=== PATIENT | female | born 1930 | race Asian ===

== ENCOUNTER → 2019-12-24 | Outpatient (CLI) | payer MEDICARE, BC ==
[~2019-12-24] MED LIST: ALBUAER3 IN; AMOX500T92 PO; ASPI81CH43 PO; AZIT250T9 PO; METO25TA93 PO
== END | disposition home or self-care (01) ==
LOC: LAB 12:53
PROVIDERS: ATTEND Internal Medicine
DX: R79.89 Other specified abnormal findings of blood chemistry (principal); I48.92 Unspecified atrial flutter; Z86.2 Personal history of diseases of the blood and blood-forming organs and certain disorders involving the immune mechanism
CPT/HCPCS: 36415; 84443

== ENCOUNTER 2020-04-29 11:07 | Inpatient (IN) | payer MEDICARE, BC ==
[~2020-04-29] VITALS: Ht 162.6 cm; Wt 44.8 kg
[2020-04-29] MEDS ORDERED: cefTRIAXone 1GM/50ML D5W 50 ML IV ONE (13:00)
[2020-04-29] MEDS ORDERED: AZITHROMYCIN 500MG/ 250ML 250 ML IV ONE (13:00)
[2020-04-29] MEDS ORDERED: DOXYCYCLINE 100MG/250ML 250 ML IV ONE (13:00)
[2020-04-29 13:08] LABS: INR 0.96 (0.9-1.15); Partial Thromboplastin Time 27.1 sec (23.64-32.05)
[2020-04-29 13:11] LABS: Albumin 3.5 g/dL (3.4-5.0); Anion Gap 5 (5-15); Blood Urea Nitrogen 17 mg/dL (7-18); Calcium 8.8 mg/dL (8.5-10.1); Carbon Dioxide 27 mmol/L (21-32); Chloride 104 mmol/L (98-107); Glucose 106 mg/dL (74-106); Magnesium 2.6 mg/dL (1.6-2.6); Sodium 136 mmol/L (136-145)
[2020-04-29 13:15] LABS: Alanine Aminotransferase 20 U/L (13-56); Alkaline Phosphatase 82 U/L (45-117); Aspartate Aminotransferase 27 U/L (15-37); Bilirubin, Total 0.9 mg/dL (0.2-1.0); GFR African American 114 mL/min; GFR Non-African American 95 mL/min; Total Protein 7.6 g/dL (6.4-8.2)
[2020-04-29 13:48] LABS: Basophils # (auto) 0 10 ^3/uL (0-0.2); Basophils % (auto) 0.6 % (0.0-2.0); Eosinophils # (auto) 0 10 ^3/uL (0-0.8); Eosinophils % (auto) 0.4 % (0.0-7.0); Hemoglobin 14.2 g/dL (12.2-16.2); Lymphocytes # (auto) 0.7 10 ^3/uL (0.4-5.4); Lymphocytes % (auto) 9.7 % (10.0-50.0); Mean Corpuscular Hemoglobin 32.7 pg (28.0-32.0); Mean Corpuscular Hgb Conc. 33.1 g/dL (32.0-36.0); Monocytes # (auto) 0.5 10 ^3/uL (0-1.3); Neutrophils # (auto) 5.6 10 ^3/uL (1.6-8.6); Neutrophils % (auto) 82.3 % (37.0-80.0); Nucleated Red Blood Cells % 0.1 %; Platelet Count (auto) 278 10^3/uL (140-450); Red Blood Cells 4.34 10^6/uL (4.0-5.20); Red Cell Distribution Width 13.2 % (11.8-14.3); White Blood Cell 6.8 10^3/uL (4.4-10.8)
[2020-04-29] MEDS ORDERED: LACTULOSE 20Gm/30ML SOLN PO PRN (15:15)
[2020-04-29] MEDS ORDERED: NITROGLYCERIN 0.4 MG SL TAB SL PRN (15:15)
[2020-04-29] MEDS ORDERED: ACETAMINOPHEN 500 MG TAB PO PRN (15:15)
[2020-04-29] MEDS ORDERED: ALBUTEROL SULF 2.5 MG/0.5ML(0.5%) NEB SOLN NEB PRN ×2 (15:15→18:00)
[2020-04-29] MEDS ORDERED: traMADol HCL 50 MG TAB PO PRN (15:15)
[2020-04-29] MEDS ORDERED: MORPHINE SULF INJ 2 MG/ML SYRINGE 1ML IV PRN (15:15)
[2020-04-29] MEDS ORDERED: ONDANSETRON HCL 4 MG/2 ML VIAL IV PRN (15:15)
[2020-04-29 17:57] VITALS: BP 118/68
[2020-04-29] MEDS ORDERED: IPRATROPIUM BROM 0.5 MG/2.5ML INH SOL NEB PRN (18:00)
--- NOTE | 2020-04-29 18:24 | NUR ---
RT NOTE PT WAS SEEN BY RT FOR PRN HHN TX ASSESSMENT. PT IS AWAKE AND ALERT WITHOUT SOB OR DISTRESS NOTED IN ER ROOM 19. HR 81, RR 18, BS CLEAR ON RIGHT, CRACKLES ON LEFT, POX 97% ON 3L NASAL CANNULA. PT STATES SHE FEELS GOOD AND DOES NOT NEED A TX AT THIS TIME. PT EDUCATED ON CALLING IF TX NEEDED AT ANY POINT. CONT ORDERED Addendum: 04/29/20 at 1843 by Tete Tang RT Amended: Links added.
[2020-04-29 22:00] VITALS: BP 137/77
[2020-04-29] MEDS ORDERED: ALBUTEROL SULF 2.5 MG/0.5ML(0.5%) NEB SOLN NEB SCH (22:00)
[2020-04-29] MEDS ORDERED: IPRATROPIUM BROM 0.5 MG/2.5ML INH SOL NEB SCH (22:00)
[2020-04-29] MEDS ORDERED: ALBUTEROL SULF HFA 90MCG INH 200DOSE IN SCH (22:00)
[2020-04-29] MEDS: SODIUM CHLOR 0.9% PF (SALINE LOCK) 10ML VIAL/SYR IV SCH (22:46)
[2020-04-30 05:00] VITALS: BP 95/51
--- NOTE | 2020-04-30 07:17 | NUR ---
PT ASSESSED FOR PRN HHN TX. PT IS ON 3LNC, SPO2 91%< HR 100, RR 18. NO S/S OF RESPIRATORY DISTRESS. PRN TX NOT INDICATED AT THIS TIME. WILL CONTINUE TO MONITOR.
--- NOTE | 2020-04-30 07:30 | NUR ---
Opening Note Assumed patient care from NOC RN. Patient currently sitting up in bed, no signs of distress at this time. Patient is AOx4, on 3L nasal cannula. No complaints of SOB at this time. Respirations even and unlabored, safety precautions in place. Will continue to monitor.
[2020-04-30 08:39] VITALS: BP 117/68
[2020-04-30] MEDS ORDERED: MULTTAB61 PO (10:14)
[2020-04-30] MEDS ORDERED: ALBUAER3 IN (10:15)
[2020-04-30] MEDS: levoFLOXacin 500MG 100 ML IV SCH (10:15)
[2020-04-30] MEDS: ENOXAPARIN SOD 30 MG/0.3 ML SYRINGE SC SCH (10:17)
[2020-04-30] MEDS ORDERED: ASCO500T11 PO (10:18)
[2020-04-30] MEDS: SODIUM CHLOR 0.9% PF (SALINE LOCK) 10ML VIAL/SYR IV SCH ×3 (10:18→20:46)
[2020-04-30] MEDS ORDERED: ZINC220C8 PO (10:18)
[2020-04-30] MEDS ORDERED: POTA10TA51 PO (10:18)
--- NOTE | 2020-04-30 12:05 | NUR ---
at Bedside Dr. Veloz at bedside
[2020-04-30 13:00] VITALS: BP 115/57
[2020-04-30 17:00] VITALS: BP 108/61
[2020-04-30] MEDS ORDERED: FUROSEMIDE 40 MG/4 ML VIAL IV ONE (17:45)
--- NOTE | 2020-04-30 18:00 | NUR ---
Paged RT Paged RT, patient requesting breathing treatment.
--- NOTE | 2020-04-30 18:40 | NUR ---
RT at Bedside Respiratory therapist at bedside for breathing treatment.
--- NOTE | 2020-04-30 19:30 | NUR ---
Opening Shift Note Assumed care of patient, awake and alert. No S/S of distress/SOB or pain. Patient ambulating to and from the restroom independently. Instructed on POC and to call for assist PRN, will continue to monitor for changes Q1hr and PRN.
--- NOTE | 2020-04-30 20:10 | NUR ---
Patient HR had been showing from 105 to 117 on tele monitor since arrival of shift. Patient stated that she had not taken her Metoprolol for 2 days now. Patient is asymptomatic. VS WNL except for HR. Jose Cruz Hospitalist. Received one time order for Metoprolol Succinate 25 mg PO. Will administer accordingly.
[2020-04-30] MEDS ORDERED: METOPROLOL SUCCINATE XL 50 MG TAB PO ONE (20:15)
[2020-04-30 22:00] VITALS: BP 123/65
[2020-05-01 04:30] VITALS: BP 122/68
[2020-05-01] MEDS: SODIUM CHLOR 0.9% PF (SALINE LOCK) 10ML VIAL/SYR IV SCH ×3 (06:00→22:23)
--- NOTE | 2020-05-01 07:30 | NUR ---
Opening Note Assumed patient care from NOC RN. Patient currently up in bed, no signs of distress at this time, inquiring about discharge. Respirations are even and unlabored, safety precautions in place, will continue to monitor.
[2020-05-01 08:59] VITALS: BP 123/73
[2020-05-01] MEDS ORDERED: FUROSEMIDE 40 MG/4 ML VIAL IV ONE ×2 (09:45→13:00)
[2020-05-01] MEDS: levoFLOXacin 500MG 100 ML IV SCH (10:03)
[2020-05-01] MEDS: ENOXAPARIN SOD 30 MG/0.3 ML SYRINGE SC SCH (10:03)
--- NOTE | 2020-05-01 11:27 | NUR ---
New IV Left forearm IV discontinued due to signs of infiltration. New IV 20 gauge right AC, started on first attempt; blood return noted, IV flushes easily, patient tolerated well with no signs of distress at this time. Safety precautions in place. Will continue to monitor.
--- NOTE | 2020-05-01 11:45 | NUR ---
Spoke with MD Per MD, restart home medication Metoprolol 25mg PO Daily.
[2020-05-01 12:52] VITALS: BP 124/66
--- NOTE | 2020-05-01 12:59 | NUR ---
Respiratory note: PT ASSESSED FOR PRN MED NEB TX, NO TX DESIRED NOR INDICATED AT THIS TIME. PT IS IN NO NOTED DISTRESS, DENIES SOB. HR 114 RR 18 SPO2 94% ON 3L N/C BREATH SOUNDS ARE CLEAR/DIMINISHED T/O POSTERIORLY. RN AND PT AWARE TO HAVE RT PAGED IF NEEDED.
--- NOTE | 2020-05-01 13:00 | NUR ---
Called Spoke with Dr. Veloz to clarify new order for Lasix at 1300. Per , hold Lasix at this time.
[2020-05-01 16:56] VITALS: BP 111/69
--- NOTE | 2020-05-01 19:02 | NUR ---
Closing Note Report given to JAMILA KEVIN.
--- NOTE | 2020-05-01 19:47 | NUR ---
RT NOTE PT WAS SEEN BY RT FOR PRN HHN TX ASSESSMENT. PT STATES NO TREATMENT NEEDED AT THIS TIME. HR 108/, TT 18, BS CLEAR/DIM, POX 936% ON 3L NASAL CANNULA. PT AWARE SHE CAN CALL IF TX NEEDED AT ANY TIME. NO PRN TX INDICATED AT THIS TIME. CONT ORDERED Addendum: 05/01/20 at 2008 by Tete Tang RT Amended: Links added. Addendum: 05/01/20 at 2010 by Tete Tang RT CHARTING ERROR: RR 18, POX 93%
--- NOTE | 2020-05-01 19:50 | NUR ---
Opening Shift Note Assumed care of patient, awake, AAOx4. On 3L oxygen via nasal cannula. Ambulatory to toilet. No S/S of distress/SOB or pain. Bed in lowest locked position, side rails up x2, call light within reach. Instructed on POC and to call for assist PRN, will continue to monitor for changes Q1hr and PRN.
--- NOTE | 2020-05-01 20:27 | NUR ---
Patients HR elevated to 200. Remained >150. Patient asymptomatic, no pain or distress noted. Jose Cruz Lares MD and received new orders. Will carry out and continue care.
[2020-05-01] MEDS ORDERED: METOPROLOL TARTRATE 1MG/1ML-5ML VIAL IV PRN (20:30)
[2020-05-01 21:13] VITALS: BP 109/74
[2020-05-02 04:38] VITALS: BP 109/66
[2020-05-02] MEDS: SODIUM CHLOR 0.9% PF (SALINE LOCK) 10ML VIAL/SYR IV SCH ×2 (05:03→11:49)
[2020-05-02 06:06] LABS: BUN/Creatinine Ratio 34.4; Calcium 8.6 mg/dL (8.5-10.1); Magnesium 2.8 mg/dL (1.6-2.6); Potassium 3.7 mmol/L (3.5-5.1)
--- NOTE | 2020-05-02 07:13 | NUR ---
Respiratory note: PT ASSESSED FOR PRN MED NEB TX, NO TX DESIRED NOR INDICATED. PT DENIES ANY SOB, NO DISTRESS NOTED. HR 112 RR 18 SPO2 94% ON 3L N/C BREATH SOUNDS ARE CLEAR/DIMINISHED T/O. PT AND RN AWARE TO HAVE RT PAGED IF NEEDED.
--- NOTE | 2020-05-02 07:30 | NUR ---
Opening Shift Note Assumed patient care from JAMILA KEVIN, Debbie.
[2020-05-02] MEDS ORDERED: FUROSEMIDE 40 MG/4 ML VIAL IV SCH (08:00)
[2020-05-02] MEDS: levoFLOXacin 500MG 100 ML IV SCH ×2 (08:34→10:00)
[2020-05-02] MEDS: ENOXAPARIN SOD 30 MG/0.3 ML SYRINGE SC SCH (08:35)
[2020-05-02 09:00] VITALS: BP 105/67
[2020-05-02] MEDS ORDERED: METOPROLOL SUCCINATE XL 50 MG TAB PO SCH (10:00)
--- NOTE | 2020-05-02 10:17 | NUR ---
MD at Bedside MD at bedside discussing plan of care with patient, patient to follow up in discharge clinic. Per MD give PO Lasix 40mg and PO Levaquin 500mg.
--- NOTE | 2020-05-02 10:17 | NUR ---
IV Discontinued IV to left AC discontinued, is aware, switch IV Lasix and Levaquin to PO, patient to be discharged today. Addendum: 05/02/20 at 1043 by JULIAN APPLE RN RN IV discontinued due to infiltration. Patient tolerated well, no signs of distress at this time. Will continue to monitor.
[2020-05-02] MEDS ORDERED: levoFLOXacin 500 MG TAB PO ONE (10:45)
[2020-05-02] MEDS ORDERED: FUROSEMIDE 20 MG TAB PO ONE (10:45)
[2020-05-02 13:00] VITALS: BP 113/58
[2020-05-02 15:09] VITALS: BP 113/58
--- NOTE | 2020-05-02 16:16 | NUR ---
Discharge Discharge instructions given as ordered. Encourage to follow up with PMD as instructed. All questions and concerns addressed. Patient verbalized understanding. Medication reconciliation form completed and copy given to patient. IV removed with catheter intact, pressure dressing applied. Telemetry unit returned to ICU. Patient taken to vehicle via wheelchair with all personal belongings, accompanied by staff and family member. No distress noted at time of departure. All discharge paper work, appointment times, and prescriptions with patient.
== END 2020-05-02 16:17 | disposition home or self-care (01) | DRG 291 ==
LOC: ER 11:07 → TELE 11:08 → TELE-EAST 20:50
PROVIDERS: ADMIT Internal Medicine; ATTEND Internal Medicine
DX: I11.0 Hypertensive heart disease with heart failure (principal); J18.9 Pneumonia, unspecified organism; J96.21 Acute and chronic respiratory failure with hypoxia; J44.0 Chronic obstructive pulmonary disease with (acute) lower respiratory infection; I50.33 Acute on chronic diastolic (congestive) heart failure; I27.20 Pulmonary hypertension, unspecified; I48.91 Unspecified atrial fibrillation; Z20.828 Contact with and (suspected) exposure to other viral communicable diseases; Z83.3 Family history of diabetes mellitus
CPT/HCPCS: 36415; 71045; 80048; 80053; 82550; 83605; 83735; 83880; 84443; 84484; 85025; 85610; 85730; 87040; 87070; 87804; 87880; 93005; 94640; 96365; 96366; 96368; 96375; G0378; J0696; J1956

== ENCOUNTER → 2020-07-22 | Outpatient (CLI) | payer MEDICARE, BC ==
[~2020-07-22] MED LIST changes: -AMOX500T92 PO; +ASCO500T11 PO; -AZIT250T9 PO; +MULT-1018 PO; +POTA10TA51 PO; +ZINC220C8 PO
== END | disposition home or self-care (01) ==
LOC: LAB 10:54
PROVIDERS: ATTEND Internal Medicine
DX: R05 Cough (principal); R06.82 Tachypnea, not elsewhere classified
CPT/HCPCS: 83880